=== PATIENT | female | born 1955 | race Caucasian/White ===

== ENCOUNTER → 2023-05-29 10:16 | Outpatient (CLI) | payer OTHER, SELFPAY ==
--- NOTE | 2023-05-29 | DI.US.S_ITS ---
PROCEDURE: US INJECT OR DRAIN JOINT INDICATIONS: RIGHT BICEP TENDON PAIN TECHNIQUE: The indications, alternatives, benefits, risks, and complications of the procedure were explained to the patient. Written informed consent was obtained and placed in the chart. The patient was placed in an supine position. The biceps tendon with localized under ultrasound. Local anesthetic was administered using a 1% lidocaine solution. A hypodermic or spinal needle was then used to access the biceps tendon sheath. After confirming the position of the needle, a mixture of 0.5 mL 40 mg/mL Kenalog and 1 ML 0.5% Ropivacaine was injected into the biceps tendon sheath. FINDINGS: Joint injected: Right biceps tendon Medications injected: 1.5 mL of 40 mg/mL Kenalog and 0.5% Ropivacaine mixture. Patient's pain before injection: 0 of 10. Patient's pain after injection: 0 of 10. Complications: None. IMPRESSION: Successful ultrasound guided administration of steroid and anaesthetic solution into the right biceps tendon. Dictated by: Hailey Zavala M.D. on 05/29/2023 at 11:45 Approved by: Hailey Zavala M.D. on 05/29/2023 at 11:49
== END ==
PROVIDERS: Referring Provider Physician Assistant Surgical; Visit Provider Physician Assistant Surgical
DX: M75.21 Bicipital tendinitis, right shoulder (principal)
CPT/HCPCS: 20611